=== PATIENT | female | born 1980 | race Caucasian/White ===

== ENCOUNTER 2019-02-17 13:43 | Day surgery (SDC) | payer OTHER ==
[~2019-02-17] VITALS: Ht 167.6 cm; Wt 60.6 kg
[2019-02-17 14:39] VITALS: Ht 167.6 cm; Wt 60.6 kg
[2019-02-17] MEDS ORDERED: HYDR-842 PO (15:10)
[2019-02-17] MEDS ORDERED: CARAS PO (15:10)
[2019-02-17] MEDS ORDERED: OMEP40CA6 PO (15:10)
[2019-02-17] MEDS ORDERED: LAMO50TA2 PO (15:10)
[2019-02-17] MEDS ORDERED: TRAZ-111 PO (15:10)
--- NOTE | 2019-02-17 15:17 | PREAC ---
Date/Time of Note Date/Time of Note DATE: 02/17/19 TIME: 15:16 Anesthesia Eval and Record Evaluation Time Pre-Procedure Interview DATE: 02/17/19 TIME: 15:16 Age 38 Sex female NPO: 8 hrs Preoperative diagnosis Esophageal Stricture Planned procedure EGD, Esophageal Dilatation Past Medical History Past Medical History: Includes Cardio: Dyslipidemia Neuro: Other (Bipolar and PTSD) Surgery & Anesthesia Issues No known issue Meds Anticoagulation: No Beta Brielle within 24 hr: No Reason Beta Brielle not given: Pt. not on B-Brielle Reported Medications Hydroxyzine Hcl* (Atarax*) 25 Mg Tab, 25 MG PO Q6H PRN for ITCHING, TAB 02/17/19 Trazodone Hcl* (Trazodone Hcl*) 50 Mg Tablet, 50 MG PO BID, #60 TAB 02/17/19 Lamotrigine* (Lamictal* ODT) 50 Mg Tab.rapdis, 50 MG PO DAILY, TAB 02/17/19 Omeprazole* (Omeprazole*) 40 Mg Capsule.dr, 40 MG PO DAILY, #30 CAP 02/17/19 Sucralfate* (Carafate*) 1 Gm/10 Ml Susp, 1 GM PO QID, EA 02/17/19 Meds reviewed: Yes Allergies Allergies Reviewed: Yes Labs/Studies Labs Reviewed: Reviewed by anesthesiologist test: Negative Studies: ECG (n/a), CXR (n/a) Pre-procedure Exam Airway: Adequate mouth opening, Adequate thyromental dist Mallampati: Mallampati II Teeth: Normal Lung: Normal Heart: Normal ASA Physical Status ASA physical status: 3 Emergency: None Planned Anesthetic General/MAC: MAC Planned Pain Management Parenteral pain med Pre-operative Attestations Prior to commencing anesthesia and surgery, the patient was re-evaluated, there was verification of: *The patient's identity *The results of appropriate recent lab work and preoperative vital signs *The above evaluation not changing prior to induction *Anesthetic plan, risk benefits, alternative and complications discussed with patient/family; questions answered; patient/family understands, accepts and wishes to proceed. NISHANT LU MD Feb 17, 2019 15:17
[2019-02-17 15:52] VITALS: BP 130/74; PULSE 96; RESP 20
[2019-02-17] MEDS ORDERED: PROPOFOL 20 ML ONE ×2 (16:24→17:16)
--- NOTE | 2019-02-17 17:04 | PAC ---
Date/Time of Note Date/Time of Note DATE: 02/17/19 TIME: 17:04 Post-Anesthesia Notes Post-Anesthesia Note Last documented vital signs Vital Signs Date Temp Pulse Resp B/P (MAP) Pulse Ox O2 O2 Flow FiO2 Time Delivery Rate 02/17/19 99.5 96 20 130/74 98 Room Air 17:02 (92) Activity: WNL Respiratory function: WNL Cardiovascular function: WNL Mental status: Baseline Pain reasonably controlled: Yes Hydration appropriate: Yes Nausea/Vomiting absent: Yes NISHANT LU MD Feb 17, 2019 17:04
== END 2019-02-17 17:37 | disposition home or self-care (01) ==
LOC: GIL 13:43
PROVIDERS: ATTEND Internal Medicine Gastroenterology
DX: K22.2 Esophageal obstruction (principal); K44.9 Diaphragmatic hernia without obstruction or gangrene; K22.10 Ulcer of esophagus without bleeding
CPT/HCPCS: 43249; 84703; Z7610